=== PATIENT | female | born 1980 | race Caucasian/White ===

== ENCOUNTER → 2021-06-19 12:47 | Outpatient (CLI) | payer OTHER, SELFPAY ==
--- NOTE | ~2021-06-19 | US_ITS ---
EXAMINATION: US pelvic complete w TV DATE: 06/19/2021 13:11 INDICATION: Menorrhagia Comparison:No prior studies for comparison. TECHNIQUE: Multiple transabdominal and endovaginal sonographic images of the pelvis performed. FINDINGS: The uterus measures 9 x 4.1 x 5.8 cm. The endometrial complex measures 11 mm. The right ovary measures 2.5 x 1.7 x 3.6 cm and the left ovary measures 3.1 x 2.5 x 3.9 cm. There ar e small follicles in each ovary. Normal doppler signal in both ovaries. There is a 1.9 cm left ovaria n cyst. There is no free fluid in the pelvis. There are no abnormal masses seen on either side. IMPRESSION: 1. Left ovarian cyst measuring 1.9 cm Reviewed, dictated and finalized at location A.
== END ==
PROVIDERS: PCP Nurse Practitioner Family; Visit Provider Nurse Practitioner Family
DX: N83.202 Unspecified ovarian cyst, left side (principal)
CPT/HCPCS: 76830; 76856

== ENCOUNTER 2021-08-09 00:19 | Day surgery (SDC) | payer OTHER, SELFPAY ==
[2021-07-07 15:02] VITALS: BMI 25.0
--- NOTE | 2021-07-07 15:21 | PC.NURSE ---
Report to the Outpatient Waiting Room, entrance under the green pavilion located off [facility], at time 11:30 on date 07/19/21. OR Time: 1:30. - You and your visitor will be asked a series of questions to screen for COVID 19 for your protection. - A mask is required within the hospital. - Only one visitor is allowed at this time. Patient visitors will be guided where to wait when not with patient. Preoperative COVID Testing Requirements: No COVID Test needed if: (proof is required; if not received patient will have Rapid Test prior to entry) - Patient has received COVID Vaccine at least 14 days prior to procedure date or - Patient has positive COVID test result within last 90 days of surgery date. COVID Test needed if above criteria is not met If not COVID vaccinated a COVID test must be conducted within 72 hours of surgery and patient is asked to isolate self from time of testing until procedure. You will go to the [facility] for your COVID testing. The [facility] is located at the corner of [address] [facility]. You will only be called if COVID results are positive and your surgeon may reschedule your elective surgery date. Patients may have clear liquids (water, carbonated beverages, clear teas, apple juice) until 3 hours prior to surgery with a maximum of 20 ounces. - No food from midnight until time of surgery - Infants may have breast milk until 4 hours before surgery, infant formula 6 hours prior to surgery. - Children will be allowed to drink immediately following surgery. If applicable, please bring a bottle or sippy cup to assist with drinking. Juice, water, soda, and popsicles are readily available. For infants on formula, please bring formula the day of surgery. Pacifiers are allowed. Take the following medications with a SIP of water the morning of surgery: DOXYCYCLINE Medications to discontinue per physician: VITAMINS Date to take last dose: 07/14/21 Please no make-up, nail yoruba, hairspray, perfume, deodorant, or body powder the day of surgery. No jewelry (including any body piercings) or valuables the day of surgery, leave them at home. Please take a shower or bath the night before, or the morning of, surgery with an antibacterial soap. Wear comfortable, loose fitting clothing. Children are encouraged to wear pajamas. - Jewelry must be removed prior to entering the operating room. Rings and piercings that are not removed may be cut off. - The hospital will not accept responsibility for valuables. - Please leave all valuables, including medications, at home the day of surgery. If you are going home after surgery, a licensed driver/guide must drive you home. - NO public transportation without another adult. - We recommend that an adult stay with you for 24 hours following discharge. - We also recommend that you do not drive, make important decision, drink alcoholic beverages, or take any drugs that were not prescribed by your health care provider for at least 24 hours after your discharge time. For Pediatric surgeries, we recommend two adults accompany the child home (only one inside the building at this time). Follow any additional instructions given to you from your surgeon. Telephone instructions given to ZACKERY PUGA and asked if any additional questions and then verbalized understanding. Patient advised to call surgeon office or pre surgery nurse liaison [phone] if any additional questions.
--- NOTE | 2021-08-07 10:45 | PC.NURSE ---
Pt states no changes in medications or health history, other than noted Covid +, since previous interview. New pre-op instructions, including arrival time at 1000 for surgery at 1200, reviewed with pt. Pt denies any further questions at this time.
[2021-08-09] VITALS (10 sets, daily range): BP systolic 128–168; BP diastolic 78–110; PULSE 65–99; RESP 13–21; TEMP 36.6–36.9; O2SAT 100
[2021-08-09] MEDS: ACETAMINOPHEN 500 MG TABLET 1000 MG PO (10:14)
--- NOTE | 2021-08-09 10:46 | WPDANESEPPF ---
Anes - Initial Pre Proc Eval Procedure: Operation Date: 08/09/21 12:00 Proposed Procedures p Laparoscopic Bilateral Tubal Ligation with Fallopian Rings - Elroy Ashley MD s Possible Left Ovarian Cystectomy, Hysteroscopy Dilatation and Curettage with Endometrial Ablation,Paula - Elroy Ashley MD Date/Time: 08/09/21 10:46 Surgeon: Elroy Ashley MD Pre Op Diagnosis: Irg Bleeding,Desires Steril,Lt Ovarian Cyst Patient Data Age: 41 Gender: F Height: 1.7 m Weight: 70.2 kg Last Vital Signs Temp 36.9 C 08/09/21 10:43 Pulse 90 08/09/21 10:43 Resp 16 08/09/21 10:43 BP 151/93 H 08/09/21 10:43 Pulse Ox 100 08/09/21 10:43 Allergies Allergy/AdvReac Type Severity Reaction Status Date / Time No Known Allergies Allergy Unknown Unverified 08/09/21 10:11 Home Medications Medication Instructions Recorded Confirmed Type doxycycline hyclate 100 mg PO BID 07/07/21 08/09/21 History multivitamin 1 tablet PO DAILY 07/07/21 08/09/21 History Patient hx anesthesia problems: none Family hx anesthesia problems: none Results Review: All pre-operative results and documents have been reviewed as part of the pre-operative evaluation. [facility] Past Medical History Medical History (Updated 08/09/21 @ 10:47 by Say Li MD) Acne IBS (irritable bowel syndrome) Surgical History Surgical History (Updated 08/09/21 @ 10:47 by Say Li MD) History of bladder surgery Social History Social History Years smoked: 7 Smoking status: Former smoker Tobacco type: cigarettes Smoking end date: 08/19/07 Alcohol intake: current Drinks per week: 4 Substance use: never Substance use type: does not use Living arrangements: with family Spiritual care concerns: No Anes - Eval Final PreProcedure Day of Procedure 08/09/21 10:46 Patient weight: normal Heart: regular rate and rhythm Lungs: clear to auscultation Airway: Mallampati scale class II Neurological: alert and oriented Last oral intake: >/= 8 hours ASA classification: II Emergent: no Anesthetic plan: proceed Anesthesia type and monitoring: general ETT and standard monitoring Results Review: All pre-operative results and documents have been reviewed as part of the pre-operative evaluation. Informed Consent: The patient's anesthetic plan and its attendant risks and benefits were discussed with the patient/family/POA. Questions were solicited and answers provided to the satisfaction of the patient/family/POA.
[2021-08-09] MEDS: LACTATED RINGERS 1,000 ML 30 ML IV CONT ×2 (11:29→13:31)
[2021-08-09] MEDS: KETOROLAC 15 MG/ML VIAL (*BKC) IV PUSH ×2 (11:30→14:16)
--- NOTE | 2021-08-09 12:16 | PM.IMHP ---
H&P: HPI History of Present Illness Date/Time: 08/09/21 12:16 41 y/o with heavy, prolonged menses, a left ovarian cyst 1.9 cm, and desired sterility. Chief Complaint: Heavy periods Review of Systems Review of Systems: All systems reviewed & are unremarkable except as noted in HPI and below PMFSH Past Medical History Medical History Acne IBS (irritable bowel syndrome) Surgical History Surgical History History of bladder surgery Social History Social History Years smoked: 7 Smoking status: Former smoker Tobacco type: cigarettes Smoking end date: 08/19/07 Alcohol intake: current Drinks per week: 4 Substance use: never Substance use type: does not use Living arrangements: with family Spiritual care concerns: No Meds Home Medications and Allergies Home Medications Medication Instructions Recorded Confirmed Type doxycycline hyclate 100 mg PO BID 07/07/21 08/09/21 History multivitamin 1 tablet PO DAILY 07/07/21 08/09/21 History Allergies Allergy/AdvReac Type Severity Reaction Status Date / Time No Known Allergies Allergy Unknown Unverified 08/09/21 10:11 Vital Signs Vital Signs - 24 hr 08/09/21 10:43 Temperature 36.9 C Pulse Rate 90 Respiratory Rate 16 Blood Pressure 151/93 H Pulse Oximetry 100 Exam Const: Orientation/consciousness: patient oriented x3 Other: Well-developed, well-nourished female in no acute distress. Neck: Thyroid: thyroid normal Lymphatic: no lymphadenopathy noted (in neck, axilla or inguinal nodes) Resp: Effort & Inspection: normal respiratory effort Auscultation: clear to auscultation bilaterally Cardio: Rate: regular rate Rhythm: regular rhythm Heart sounds: S1 normal heart sound present and S2 normal heart sound present GI: Other: ABD: Soft, nontender, nondistended. No guarding or rebound tenderness. No hepatosplenomegaly. : General: Yes no CVA tenderness Other: External genitalia: normal female hair distribution, without lesion. Urethral meatus: no lesion, non prolapsed. Bladder: no mass, nontender Vagina: well-estrogenized, without lesion or discharge. No cystocele or rectocele. Cervix: no lesion or discharge. Uterus: small, anteverted, freely mobile, nontender Adnexa: no mass or tenderness. Anus/perineum: no lesions, nontender Back/Spine/Pelvis: Back: no CVA tenderness Skin: General skin exam: normal color and no rashes or lesions noted Neuro: General: patient oriented x3 Extrem: Other: Extremities: nontender with no edema Psych: Mental Status: mental status grossly normal Affect: normal affect Assessment and Plan Assessment and plan (1) Menometrorrhagia: Code(s): N92.1 - Excessive and frequent menstruation with irregular cycle Status: Acute Assessment and Plan: A: Menometrorrhagia, desired sterility, small ovarian cyst on left P: I offered medical as well as surgical management options. She prefers the latter. Specifically, she desires a laparoscopic bilateral tubal ligation, incision and drainage of left ovarian cyst, hysteroscopy, dilation and sharp curettage, and endometrial ablation. She understands there are temporary methods of contraception available to her. She understands that there are nonsurgical options as well as surgical options. She understands that tubal ligation will render her permanently sterile. She understands that there is a failure rate associated with tubal ligation, as well as an inherent ectopic gestation risk. Furthermore, she understands risks of surgery to include risks of anesthesia, risks of pain, infection, bleeding, blood products, thromboembolic phenomena and damage to adjacent structures such as bowel, bladder, ureters, blood vessels and nerves. She understands all these risks and elects to pro
--- NOTE | 2021-08-09 12:18 | WPDHPUPDATE1 ---
History and Physical Update Update Date/Time: 08/09/21 12:18 History and Physical has been reviewed, including an updated exam of the patient. There are NO changes in the patient's condition. Risks, benefits, and alternatives have been discussed and questions answered. Patient agrees to proceed with procedure.
[2021-08-09] MEDS: LIDOCAINE HCL 1% PF 30 ML VIAL INFILTRATE (13:05)
--- NOTE | 2021-08-09 13:11 | P.OP_ITS ---
Procedure Note - Detailed Date of Procedure 08/09/21 Pre-op Diagnosis Menometrorrhagia Left ovarian cyst Desired sterility Post-op Diagnosis other (Menometrorrhagia, desired sterility ) Procedure Performed Laparoscopic bilateral tubal ligation with Falope rings Hysteroscopy Dilation and sharp curettage Endometrial ablation Surgeon Elroy Ashley MD Anesthesia general and local (1% lidocaine) Findings Normal-appearing right upper quadrant, vermiform appendix, uterus, bilateral tubes, round and uterosacral ligaments, anterior and posterior cul de sac. Both ovaries demonstrated follicular changes, but no dominant cysts. The uterus sounded to a depth of 7.5 cm with a cervical length of 3 cm. Unremarkable endometrial cavity. Both tubal ostia seen. Description of Procedure The patient was taken to the operating room where general endotracheal anesthes ia was administered. She was prepared and draped in the usual sterile fashion in dorsal lithotomy position. The bladder was drained with a red rubber catheter. A sterile speculum was placed into the vagina. The anterior lip of the cervix was grasped with a single-tooth tenaculum. The acorn uterine manipulator was placed. The speculum was withdrawn. Gloves were changed and attention was turned the abdomen. An infraumbilical skin incision was made with a scalpel. The abdomen was tented and a 5mm bladeless trocar was advanced under direct laparoscopic visualization. Pneumoperitoneum was administered using carbon dioxide gas. A survey of the pelvis and abdomen revealed the findings noted above. A second skin incision was made in the midline above the symphysis pubis and an 8mm bladeless trocar was advanced under direct laparoscopic visualization. The fallopian tube on the right side was followed out to the fimbriated end for identification. It was then grasped in the midportion with the Falope ring applicator. The Falope ring was tented applied. A good loop of tube was noted to be distal to the ring. Hemostasis was excellent. The device was reloaded and the contralateral tube was similarly identified and ligated. An excellent application was noted here as well. A total of 5mL of 1% lidocaine was infiltrated into the serosa of the proximal tubes for postoperative anesthesia. The ports were withdrawn. The gas was allowed to escape. The skin incisions were reapproximated using interrupted subcuticular sutures of 4 0 Vicryl. Dermaflex was applied externally. Attention was then returned to the vagina, where the acorn manipulator was withdrawn. Ten mL of 1% lidocaine was administered in a paracervical block. The cervix was then gently dilated using Hegar dilators until an 8 mm dilator could be passed. Hysteroscopy was performed using sterile saline as a distention medium. Findings are as noted above. Sharp curettage was then performed, and endometrial curettings were collected on a Telfa pad and passed off to be sent to pathology. Finally, the the Paula device was advanced and endometrial ablation commenced without difficulty. The device was withdrawn and a second look was taken using the hysteroscope. Excellent coverage of the endometrial cavity was noted. The tenaculum was removed. Hemostasis was excellent. Sponge, lap, needle and instrument counts were correct. The patient was awakened and taken to the recovery room in stable condition. I was present and scrubbed through the entire procedure. Implants Falope rings x 2 Estimated Blood Loss 10 Drains No Packing No Pathology yes (endometrial curettings) Complications None Condition stable Disposition PACU
[2021-08-09] MEDS: fentaNYL CITRATE INJ (*CRX) 100 MCG/2 ML VIAL 25 MCG IV PUSH ×8 (13:29→14:10)
[2021-08-09] MEDS: oxyCODONE HCL (*CRX) 5 MG TAB IR PO (14:51)
[2021-08-09] MEDS: ONDANSETRON INJ 4 MG/2 ML VIAL IV PUSH (15:03)
[2021-08-09] MEDS: HYDROmorphone HCL INJ (*CRX) 1 MG/ML SYR 0.5 MG IV PUSH ×2 (15:35→15:58)
== END 2021-08-09 16:00 | disposition home or self-care (01) ==
PROVIDERS: PCP Nurse Practitioner Family; Visit Provider Obstetrics & Gynecology
PROC: (CPT 58671; principal; 2021-08-09 12:00)
PROC: 0UDB8ZZ Extraction of Endometrium, Via Natural or Artificial Opening Endoscopic (ICD-10-PCS; CPT 58558; 2021-08-09 12:00)
DX: N92.1 Excessive and frequent menstruation with irregular cycle (principal); Z30.2 Encounter for sterilization; K58.9 Irritable bowel syndrome, unspecified; Z87.891 Personal history of nicotine dependence
CPT/HCPCS: 58671; 58563; 88305; A4264; A9270; J1100; J1170; J1885; J2250; J2405; J2704; J2710; J3010; J7030; J7120

== ENCOUNTER 2025-03-01 18:18 | Emergency (ER) | payer OTHER, SELFPAY ==
--- NOTE | 2025-03-01 18:20 | ED_ITS ---
HPI - URI/Sore Throat General Chief Complaint: Upper Respiratory Infection Stated Complaint: sore throat Source: patient and RN notes reviewed Mode of arrival: ambulatory Limitations: no limitations History of Present Illness HPI Narrative: Patient is a 45-year-old female presents to the [facility] complaints cough, congestion, postnasal drip, and ear pain for the past week and half. Patient endorses a frequent nonproductive cough that is occasionally productive with green or clear sputum. She denies chest pain or shortness of breath. States that she has also had nasal congestion, scratchy throat, postnasal drip for the same amount of time. She developed left ear pain a few days ago, but states that the right ear is also now bothering her. Denies ear drainage. Denies fevers. Unsure of any known sick contacts but she has been traveling for [place] for the last 4 weekends. Related Data Home Medications ?Medication ?Instructions ?Recorded ?Confirmed ?Last Taken ?Type multivitamin 1 tablet PO DAILY 07/07/21 12/07/24 08/08/21 History carvedilol 12.5 mg tablet 12.5 mg PO Q12H 01/19/25 01/19/25 Unknown History losartan 100 mg tablet 100 mg PO DAILY 01/19/25 01/19/25 Unknown History chlorthalidone 25 mg tablet mg 03/01/25 Unknown History cholecalciferol (vitamin D3) 125 5,000 unit PO QDAY 03/01/25 03/01/25 Unknown History mcg (5,000 unit) capsule Allergies Allergy/AdvReac Type Severity Reaction Status Date / Time No Known Allergies Allergy Unknown Verified 03/01/25 18:29 Review of Systems Review of Systems: CONSTITUTIONAL: Denies fever, chills, or sweats. EYES: Denies visual changes, redness, or discharge. ENT: Reports otalgia and sore throat. Reports congestion. CARDIOVASCULAR: Denies chest pain, palpitations, or edema. RESPIRATORY: Reports cough but denies dyspnea. GASTROINTESTINAL: Denies abdominal pain, nausea, vomiting, or diarrhea. GENITOURINARY: Denies dysuria or hematuria. SKIN: Denies rash or itching. MUSCULOSKELETAL: Denies back pain, joint pain, or myalgia. NEUROLOGIC: Denies headache, numbness, or weakness. Pertinent positives per HPI. [facility] Past Medical History Medical History PCOS (polycystic ovarian syndrome) IBS (irritable bowel syndrome) Surgical History Surgical History H/O tubal ligation History of bladder surgery Family History Family History Father Alcoholism Hypertension Heart disease Mother Alcoholism Cancer Hypertension Heart disease Grandparent Alcoholism Hypertension Heart disease Cerebrovascular accident Social History Social History Years smoked: 7 Smoking status: Former smoker Tobacco type: cigarettes Smoking end date: 08/19/07 Alcohol intake: current Drinks per week: 4 Substance use: never Substance use type: does not use Do You Feel Safe in your Home?: Yes Living arrangements: with family Occupation/Education: occupation Gender identity (if verbalized by the patient): Female Sexual Orientation (if Verbalized by the Patient): Straight or Heterosexual Spiritual care concerns: No Agree to blood products: Yes Comments At the time of my signature, I reviewed and agree with the nursing past medical, surgical, social, and family history. There is no relevant family history pertinent to the patient complaint. Exam Narrative: GENERAL: This is a well-nourished, well-developed patient, in no apparent distress. HEAD: normocephalic, atraumatic. EYES: Sclera clear/white. Vision is grossly intact. EARS: External ears normal, auditory canals clear and without drainage. Right TM normal without perforation. Left TM erythematous and bulging. Hearing grossly intact. NOSE: External nose normal. + congestion. THROAT: Mucous membranes moist, Oropharyngeal erythema. NECK: Neck supple, non-tender without lymphadenopathy, masses or thyromegaly. CARDIOVASCULAR: Regular rate and rhythm without murmurs, gallops, or rubs. RESPIRATORY: Clear to auscultation. Breath sounds equal bilaterally. No wheezes, rales, or rhonchi. GASTROINTESTINAL: Abdomen soft, non-tender, nondistended. Bowel sounds are active. No hepato-splenomegaly, or palpable masses. No guarding. SKIN: warm, intact with no suspicious lesions or rash, good texture and turgor. NEURO: awake, alert, and oriented to person, place and time. There were no obvious focal neurologic abnormalities. Course Course Level of Care: Express Care Visit Vital Signs Vital signs: Vital Signs Temperature 98 F 03/01/25 18:29 Pulse Rate 76 03/01/25 18:29 Respiratory Rate 18 03/01/25 18:29 Blood Pressure 121/70 03/01/25 18:29 Pulse Oximetry 100 03/01/25 18:29 Oxygen Delivery Room Air 03/01/25 18:29 Temperature 98 F 03/01/25 18:29 Pulse Rate 76 03/01/25 18:29 Respiratory Rate 18 03/01/25 18:29 Blood Pressure 121/70 03/01/25 18:29 Pulse Oximetry 100 03/01/25 18:29 Oxygen Delivery Room Air 03/01/25 18:29 Reviewed MDM - URI/Sore Throat MDM Narrative Medical decision making narrative: Take antibiotics as directed. May given ibuprofen and/or Tylenol as needed for pain and/or fever. Follow up with primary care provider in 7-10 days to have ear rechecked. Go to the ER for any new or worsening symptoms. Avoid smoking/second-hand smoke. Continue to take Tylenol or Motrin for pain. Increase your Vitamin C intake. Use a humidifier or vaporizer at night. Take Medications as prescribed. Drink plenty of water. 8-10 glasses per day. Use flonase 2 times per day for 5 days then as needed Take mucinex 2 times per day and be sure to take with 8oz of water. Follow up with Primary provider if not getting better. Differential Diagnosis Differential diagnosis: Likely upper respiratory infection, otitis media, sinusitis, viral infection, pharyngitis and other ( Strep) Lab Data Attestation: I reviewed the patient's lab results. Labs: Lab Results 03/01/25 Range/Units 18:47 POC Grp A Strep Screen Negative (Negative) Critical Care Time Critical Care Time Critical Care Time: No Discharge Plan Discharge Clinical Impression: Acute left otitis media, Acute bacterial sinusitis Patient Disposition: Home Condition: Stable Instructions: Antibiotic Form, Sinusitis (ED), Ear Infection (ED) Additional Instructions: Take antibiotics as directed. May given ibuprofen and/or Tylenol as needed for pain and/or fever. Follow up with primary care provider in 7-10 days to have ear rechecked. Go to the ER for any new or worsening symptoms. Avoid smoking/second-hand smoke. Continue to take Tylenol or Motrin for pain. Increase your Vitamin C intake. Use a humidifier or vaporizer at night. Take Medications as prescribed. Drink plenty of water. 8-10 glasses per day. Use flonase 2 times per day for 5 days then as needed Take mucinex 2 times per day and be sure to take with 8oz of water. Follow up with Primary provider if not getting better. Patient Language: Yoruba Prescriptions: New amoxicillin-pot clavulanate 875-125 mg tablet 1 tablet PO Q12H 10 Days Qty: 20 0RF fluticasone propionate [Flonase Allergy Relief] 50 mcg/actuation spray,suspension 1 spray intranasal BID Qty: 16 0RF Rx Instructions: administer into each nostril No Action chlorthalidone 25 mg tablet cholecalciferol (vitamin D3) 125 mcg (5,000 unit) capsule 5,000 unit PO QDAY carvedilol 12.5 mg tablet 12.5 mg PO Q12H Rx Instructions: must administer with a meal/food losartan 100 mg tablet 100 mg PO DAILY multivitamin Tablet 1 tablet PO DAILY Follow-up/Referrals: Stefanie Pace APRN [Primary Care Provider] - Time of Disposition: 18:45
--- OUTSIDE RECORDS SUMMARY | 2025-03-01 18:20 | XMS_ITS | Clinical Summary ---
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
--- OUTSIDE RECORDS SUMMARY | 2025-03-01 18:20 | XMS_ITS | Encounter Summary ---
Author Organization [facility] Address [address] [place] [address] Care Team Providers Care Lumber Buyer Name Role Phone Stefanie Pace STATIONS SUPERINTENDENT Primary Care Provider + Shade Calix MD Unavailable [phone] Shante Lazo RN Unavailable Unavailable Rmoa Arizmendi RN Unavailable Unavailab le Encounter Details Date Type Department Care Team (Late st Contact Info) Description 02/16/2025 Telephone [facility] [address] [facility] [phone] [place] [address] Vi Parra Social History Tobacco Use Types Packs/Day Years Used Date Smoking Tobacco: Former Cigarettes 0.5 5 Smokeless Tobacco: Never Comments No Sex and Gender Information Value Date Recorded Sex Assigned at Not on file 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 documented in this encounter Plan of Treatment Not on file documented as of this encounter Visit Diagnoses Not on filedocumented in this encounter Care Teams Lumber Buyer Relationship Specialty Start Date End Date Stefanie Pace NP PCP - General Nurse Practitioner 06/28/21 Shade Calix MD [id number] [address] Referring Physician Cardiology 12/10/24 Shante Lazo, deckhand crab boat Failure Coordinator Cardiology 12/10/24 Roma Arizmendi, deckhand crab boat Failure Coordinator Cardiology 12/10/24 documented as of this encounter
--- OUTSIDE RECORDS SUMMARY | 2025-03-01 18:20 | XMS_ITS | Clinical Summary ---
Author Organization [facility] Address [address] [place] [address] Care Team Providers Care Seam Stayer Name Role Phone Unavailable Primary Care Provider Unavailabl e Social History Tobacco Use Types Packs/Day Years Used Date Smoking Tobacco: Never Assessed Comments Unknown Sex and Gender Information Value Date Recorded Sex Assigned at Not on file Legal Sex Female 9:06 PM CDT Gender Identity Not on file Sexual Orientation Not on file Plan of Treatment Health Maintenance Due Date Last Done Comments Cervical Cancer Screening Pa p Smear (Age 30 to 64) Every 3 Years 1982 Annual Physical 1985 Hepatitis C 01/17/2000 DTaP, Tdap and Td Vaccines ( 1 - Tdap) 2001 Hepatitis B Vaccines (1 of 3 - 19+ 3-dose series) 2001 Cervical Cancer Screening Pa p with HPV Testing (Age 30 to 64) Every 5 Years 01/17/2012 Cervical Cancer Screening with HPV 01/17/2012 Mammogram Screening 2022 COVID-19 Vaccine ( - 2023-2 5 season) 2024 HPV Vaccines Aged Out No longer eligi ble based on patient's age to complete this topic Meningococcal B Vaccine Aged Out No l onger eligible based on patient's age to complete this topic Meningococcal Vaccine Aged Out No kevin alisia eligible based on patient's age to complete this topic Pneumococcal Vaccine: Pediat rics (0 to 5 Years) and At-Risk Patients (6 to 49 Years) Aged Out No longer eligible b ased on patient's age to complete this topic RSV Immunizations Under 20 Months Aged Out No longer eligible based on patient's age to complete this topic
--- OUTSIDE RECORDS SUMMARY | 2025-03-01 18:21 | XMS_ITS | Clinical Summary ---
Author Organization [facility] Address [address] [address] Care Team Providers Care Senior Android Developer Name Role Phone [place], Stefanie Moya APRN-TAPE LIBRARIAN Primary Care Provider Source Comments [facility],non-owned Affiliates and Associated Physician Practices is amultiple site organization consisting of ambulatory clinics and hospital sitesin [place], [place], [place] and [place]. This disclosure is being madepursuant to the Care Everywhere program and may not contain all information available regarding this patient. Last updated 18.[employer] [facility] Allergies No known active allergies Medications * Be aware that medications may not be up to date on this document. Alwaysverify current medications with the patient. Vit-Fe Fumarate-FA ( VITAMIN) 28-0.8 MG tablet Take 1 Tab by mouth daily. Active metoclopramide (REGLAN) 10 MG tablet Take 1 Tab by mouth every 8 hours. 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 Gender Identity Not on file Sexual Orientation Not on file Last Filed Vital Signs Vital Sign Reading Time Taken Comments Blood Pressure 115/69 12/18/2010 5:57 PM CDT Pulse 84 12/18/2010 5:57 PM CDT Temperature 36.7 C (98 F) 12/18/2010 6:18 PM CDT Respiratory Rate 18 12/18/2010 5:57 PM CDT Oxygen Saturation 100% 12/18/2010 12:29 PM CDT Inhaled Oxygen Concentration - - Weight 62.6 kg (138 lb) 12/18/2010 11:44 AM CDT Height 168.9 cm (5' 6.5) 12/18/2010 11:44 AM CD T Body Mass Index 21.94 12/18/2010 11:44 AM CDT Plan of Treatment Health Maintenance Due Date Last Done Comments LIPID TESTING 1982 MAMMOGRAM 1982 HIV SCREENING 1997 HEPATITIS C SCREENING 01/12/2000 DTAP/TDAP/TD VACCINES (1 - Tdap) 2001 HEPATITIS B VACCINE (1 of 3 - 19+ 3-dose series) 2001 HPV VACCINE (1 - 3-dose SCDM series) 2009 COVID-19 VACCINE (1 - 2023-2 5 season) 2024 DEPRESSION SCREENING 08/19/2024 INFLUENZA VACCINE (#1) 2025 ZOSTER VACCINE (1 of 2) 01/17/2032 HIB VACCINE Aged Out No longer eligi ble based on patient's age to complete this topic MENINGOCOCCAL (Group B) VACC INE SHARED DECISION-MAKING Aged Out No longer eligibl e based on patient's age to complete this topic MENINGOCOCCAL GROUPS A/C/Y/W VACCINE Aged Out No longer eligible b ased on patient's age to complete this topic PNEUMOCOCCAL VACCINE Aged Out No long er eligible based on patient's age to complete this topic Insurance [facility] Care Teams Senior Android Developer Relationship Specialty Start Date End Date Stefanie Pace BEDSPREAD CUTTER HAND-TAPE LIBRARIAN [address] [place] [id number] PCP - General 08/22/21
--- OUTSIDE RECORDS SUMMARY | 2025-03-01 18:21 | XMS_ITS | Clinical Summary ---
Author Organization [facility] al Address [address] [place] [address] Care Team Providers Care Apple Turner Name Role Phone Stefanie Pace Vivi CUNNINGHAM Primary Care Provider + Maame Shah MD Unavailable [phone] Shante Lazo RN Unavailable Unavailable Roma Arizmendi RN Unavailable Unavailab le Allergies No known active allergies Medications carvediloL (COREG) 12.5 mg tablet Take 1 tablet (12.5 mg total) by mouth 2 (two) times a day with meals 60 tablet 11 12/10/2024 6 Active losartan (COZAAR) 100 mg tablet Take 1 tablet (100 mg total) by mouth daily 90 tablet 3 12/31/2024 Active chlorthalidone (HYGROTON) 25 mg tablet Take 0.5 tablets (12.5 mg total) by mouth daily 45 tablet 3 02/16/2025 6 Active Active Problems Problem Noted Date Diagnosed Date Primary hypertension 12/10/2024 Upper respiratory infection 06/28/2021 Posterior rhinorrhea 06/28/2021 Pain in throat 06/28/2021 Fatigue 06/28/2021 Changing skin lesion 06/28/2021 Menorrhagia 06/09/2021 Elevated white blood cell count, unspecified Encntr for general adult medical exam w/o abnorm al findings 08/05/2019 Routine general medical exam ination at a health care facility 08/05/2019 Female stress incontinence 08/05/2019 Mastodynia 08/05/2019 Postcoital bleeding 08/05/2019 Right lower quadrant pain 08/05/2019 Unspecified ovarian cyst, unspecified side 08/05 Urinary tract infection, site not specified 07/19 Full incontinence of feces 08/05/2019 Urinary incontinence 08/05/2019 Dyspareunia 08/05/2019 Acne vulgaris 12/11/2017 Melasma 12/11/2017 Perioral dermatitis 09/04/2017 Other ovarian cyst, left side 09/02/2017 Encntr for clinical exercise physiologist exam (general) (routine) w/o abn findings 04/16/2016 Herniated lumbar intervertebral disc 04/12/2016 Lumbosacral radiculopathy 04/12/2016 Degeneration of intervertebral disc of lumbar re gion 04/12/2016 Lumbago 04/09/2016 Encounter for removal of intrauterine contracept mary kay device 02/24/2015 Unspecified dyspareunia (CODE) 01/28/2014 Fecal incontinence 01/28/2014 Myofascial pain 01/28/2014 Encounter for preventive health examination 03/2013 Other disorders of menstruat ion and other abnormal bleeding from female genital tract 03/06/2012 examination or test, negative result 0 03/06/2012 Encounter for routine gynecological examination 12/07/2011 Screening for malignant neoplasm of cervix 12/06 Routine follow-up 08/07/2011 Encounters Date Type Department Care Team Description 02/16/2025 Telephone [facility] Transplant Heart [address] [facility] [address] [facility] Mailstop [phone] [place] [address] Vi Parra 02/15/2025 3:20 PM CDT Lab [facility] Advanced [facility] [address] [place] [address] 02/15/2025 3:00 PM CDT Office Visit [facility] Cardiology [address] [facility] 8th [place] [address] [place] [address] Maame Shah MD Primary hypertension (Primary Dx) 02/15/2025 8:00 AM CDT - 02/15/2025 11:59 PM CDT Hospital Encounter [facility] [address] [place] [address] Primary hypertension Discharge Disposition: Discharge to home or self care 02/02/2025 Telephone [facility] Transplant Heart [address] [facility] [address] Mailstop [phone] [place] [address] Shante Lazo RN 02/02/2025 Orders Only [facility] Transplant Heart [address] Mailstop [phone] [place] [address] Shante Lazo RN Primary hypertension (Primary Dx) 12/22/2024 12:45 PM CDT Lab [facility] Lab [facility] [place] [address] Change in blood pressure; Primary hypertension 12/18/2024 1:21 PM CDT - 12/18/2024 11:59 PM CDT Hospital Encounter [facility] Lab [address] [place] [address] Discharge Disposition: Discharge to home or self care 12/18/2024 1:16 PM CDT - 12/18/2024 11:59 PM CDT Hospital Encounter [facility] Vascular Lab [address] [place] [phone] Change in blood pressure; Primary hypertension Discharge Disposition: Discharge to home or self care 12/11/2024 Results Follow-Up [facility] Cardiology [facility] 8th [place] [address] [place] [phone] aMame Shah MD ECG 12 lead 12/10/2024 2:40 PM CDT Office Visit [facility] Cardiology [facility] Medical Office Building [address] [place] [phone] Maame Shah MD Change in blood pressure (Primary Dx); Primary hypertension 12/07/2024 Telephone [facility] Cardiology [facility] 8th [place] [address] [place] [phone] Dawna Key from Last 3 Months Immunizations Immunization Administration Dates Next Due Influenza, Trivalent, Preservative Free, Intramu scular 04/19/2015 Influenza, Unspecified 06/11/2018 Pfizer SARS-CoV-2 Monovalent Vaccination (12+ Yrs) TOBAR-READY TO USE 10/16/2021 Surgical History Surgery Date Site/Laterality Comments FL LAPS ABD PRTM&OMENTUM DX W/WO SPEC BR/WA SPX Laparoscopy (Diagnostic) - (Added by TW Conv) FL SLING OPERATION STRESS INCONTINENCE Mid-Urethral Sling Operation - (Added by TW Conv) LUMBAR DISC SURGERY Lower Back Surgery Lumbar Disc - (Added by TW Conv) MICRODISCECTOMY TUBAL LIGATION 2020 SPINE SURGERY 2016 BLADDER SURGERY 2018 Medical History Medical History Date Comments Personal history of other di seases of the female genital tract History of dyspareunia - (Ad ded by TW Conv) Personal history of other di seases of the female genital tract Personal history of ovarian cyst - (Added by TW Conv) Stress incontinence Stress incon tinence - (Added by TW Conv) Personal history of other di seases of the digestive system History of constipation - (A dded by TW Conv) Personal history of other sp ecified conditions History of urinary frequency - (Added by TW Conv) Urgency of urination Urinary urg ency - (Added by TW Conv) Pain of left foot Left foot pain - (Added by TW Conv) Hypertension 11/2024 Family History Medical History Relation Name Comments Heart attack Maternal Grandfather Stas Heart disease Maternal Grandfather Stas Family history of cardiac disorder - (Added by TW Conv) Heart disease Maternal Grandmother Family history of cardiac disorder - (Added by TW Conv) Cancer Mother Mother Hypertension Mother Mother Family history of hypertension - (Added by TW Conv) Ovarian cancer Mother's Sister Ovarian ca ncer - (Added by TW Conv) Skin cancer Other 1 Family history of skin cancer - Relation: Aunt (Added by TW Conv) Diabetes Other 2 Family history of diabetes mellitus - Relation: Aunt (Added by TW Conv) Heart disease Paternal Grandfather Family history of cardiac disorder - (Added by TW Conv) Heart disease Paternal Grandmother Family history of cardiac disorder - (Added by TW Conv) Relation Name Status Comments Maternal Grandfather Stas Maternal Grandmother Mother Mother Mother's Sister Other 1 Other 2 Paternal Grandfather Paternal Grandmother Social History Tobacco Use Types Packs/Day Years Used Date Smoking Tobacco: Former Cigarettes 0.5 5 Smokeless Tobacco: Never Comments No Sex and Gender Information Value Date Recorded Sex Assigned at Not on file 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 Gender Identity Female 03/18/2019 7:48 AM CDT Sexual Orientation Straight 03/18/2019 7: 48 AM CDT Obstetrics History Last Filed Vital Signs Vital Sign Reading Time Taken Comments Blood Pressure 172/114 02/15/2025 3:12 PM CDT Pulse 71 02/15/2025 3:12 PM CDT Temperature 36.7 C (98.1 F) 04/01/2019 3:05 PM CDT Respiratory Rate 16 04/01/2019 10:27 PM CDT Oxygen Saturation 99% 02/15/2025 3:12 PM CDT Inhaled Oxygen Concentration - - Weight 69.9 kg (154 lb) 02/15/2025 3:12 PM CDT Height 170.2 cm (5' 7) 02/15/2025 3:12 PM CDT Body Mass Index 24.12 02/15/2025 3:12 PM CDT Plan of Treatment Health Maintenance Due Date Last Done Comments Cervical Cancer Screening 1982 Depression Screening 1982 Hepatitis C Screening 1982 Varicella Vaccines (1 of 2 - 13+ 2-dose series) 1995 Hepatitis B Screening 01/17/2000 Regular Well Visit/Exam 18-64 01/17/2000 Breast Cancer Screening-Mammogram 05/24/2023 05/24/2022, 05/01/2013 Covid-19 Vaccine ( season) 2024 10/16/2021, 10/14/2020, 09/16/2020 Influenza Vaccine (#1) 2025 8, 05/19/2016, 05/20/2015, Additional history exists DTaP/Tdap/Td Vaccine (3 - Td or Tdap) 11/13/2026 11/13/2016, 08/19/2004 HPV Vaccines Aged Out No longer eligi ble based on patient's age to complete this topic Pneumococcal vaccine <65 Aged Out No longer eligible based on patient's age to complete this topic Medical Devices Implanted Type Area Business Communications Instructor Device Identifier Shelf Expiration Date Model / Serial / Lot Bladder Sling Pelvis Procedures Procedure Name Priority Date/Time Associated Diagnosis Comments EGFR Routine 02/15/2025 8:00 AM CDT Primary hypertension CATECHOLAMINES, FRACTIONATED, URINE, 24 HOUR RESULT Routine 02/15/2025 8:00 AM CDT Primary hypertension ALDOSTERONE, URINE, 24 HOUR RESULT Routine 02/15/2025 8:00 AM CDT Primary hypertension CREATININE CLEARANCE, URINE, 24 HOUR RESULT Routine 02/15/2025 8:00 AM CDT Primary hypertension CREATININE Routine 02/15/2025 8:00 AM CDT Primary hypertension VOLUME AND PERIOD, URINE, 24 HOUR Routine 02/15/2025 8:00 AM CDT Primary hypertension METANEPHRINES, URINE, 24 HOUR RESULT Routine 02/15/2025 8:00 AM CDT Primary hypertension CREATININE CLEARANCE, URINE, 24 HOUR Routine 02/15/2025 8:00 AM CDT Primary hypertension CATECHOLAMINES, FRACTIONATED, URINE, 24 HOUR Routine 02/15/2025 8:00 AM CDT Primary hypertension ALDOSTERONE, URINE, 24 HOUR Routine 02/15/2025 8:00 AM CDT Primary hypertension METANEPHRINES, URINE, 24 HOUR Routine 02/15/2025 8:00 AM CDT Primary hypertension EGFR Routine 12/22/2024 12:58 PM CDT Change in blood pressure Primary hypertension VOLUME AND PERIOD, URINE, 24 HOUR Routine 12/22/2024 12:58 PM CDT Change in blood pressure Primary hypertension CREATININE CLEARANCE, URINE, 24 HOUR RESULT Routine 12/22/2024 12:58 PM CDT Change in blood pressure Primary hypertension CREATININE Routine 12/22/2024 12:58 PM CDT Change in blood pressure Primary hypertension CREATININE CLEARANCE, URINE, 24 HOUR Routine 12/22/2024 12:58 PM CDT Change in blood pressure Primary hypertension US RENAL DOPPLER Schedule Routine, Read Routine (OP Routine) 12/18/2024 2:19 PM CDT Change in blood pressure Primary hypertension ECG 12-LEAD Routine 12/10/2024 2:20 PM CDT Change in blood pressure CBC WITH AUTO DIFFERENTIAL Routine 12/07/2024 3:40 PM CDT COMPREHENSIVE METABOLIC PANEL Routine 12/07/2024 3:40 PM CDT LIPID PANEL Routine 12/07/2024 3:40 PM CDT VITAMIN B12 Routine 12/07/2024 3:40 PM CDT VITAMIN D 25 HYDROXY Routine 12/07/2024 3:40 PM CDT TSH Routine 12/07/2024 3:40 PM CDT HEMOGLOBIN A1C Routine 12/07/2024 3:40 PM CDT SCREENING MAMMOGRAM BILATERAL W SUNNY Schedule Routine, Read Routine (OP Routine) 05/24/2022 1:50 PM CDT Screening mammogram, encounter for from Last 3 Months or Most Recently Relevant to Health Maintenance Results * (ABNORMAL) Catecholamines, fractionated, urine, 24 hour (02/15/2025 8:00 AM CDT) Epinephrine, free 24 hour ur <0.8 <21 mcg/24H [place] [facility] Norepinephrine, free 24 hour ur 0.9(L) 15 - 80 mcg/24H [facility] Dopamine, free 24 hour ur <7.9 65 - 400 mcg/24H [facility] Comment: ADDITIONAL INFORMATION This test was developed and its performance characteristics determined by [facility] in a manner consistent with CLIA requirements. This test has not been cleared or approved by the U.S. Food and Drug Administration. Test Performed by: [facility] [address] [place] [address] Photographic Restorer: Sunni Jay Ph.D.; CLIA# [id number] Urine 02/15/2025 8:00 AM CDT 02/15/2025 9:48 PM CDT Maame Shah MD LAB URINE ORDERABLES Final Result [facility] Department [place] [address] [facility] Lab * Metanephrines, urine, 24 hour (02/15/2025 8:00 AM CDT) Pathologist [facility] Metanephrines Comment Not Reported [facility] Metanephrines, 24 hr ur 90 mcg/24H [facility] Comment: REFERENCE VALUE 30-180 (Normotensive) <400 (Hypertensive) Normetanephrine, 24 hour ur 312 mcg/24H [facility] Comment: REFERENCE VALUE 119-451 (Normotensive) <900 (Hypertensive) Metanephrine, Total, 24 Hour Urine 402 mcg/24H [facility] Comment: REFERENCE VALUE 156-561 (Normotensive) <1300 (Hypertensive) Interpretive Data Testing performed by: [place] [address]. Urine 02/15/2025 8:00 AM CDT 02/15/2025 9:48 PM CDT Maame Shah MD LAB URINE ORDERABLES Final Result Performing Organization Address City/[facility]/ZIP Co de Phone Number MI[facility] [place] [address] [facility] * eGFR (02/15/2025 8:00 AM CDT) eGFR See Comment >=60 Comment: Credited, specimen not received Interpretive Data Reference Interval Normal >/= 90 mL/min/1.73m2 Mildly decreased* 60 - 89 mL/min/1.73m2 Mildly to moderately decreased 45 - 59 mL/min/1.73m2 Moderately to severely decreased 30 - 44 mL/min/1.73m2 Severely decreased 15 - 29 mL/min/1.73m2 Kidney Failure < 15 mL/min/1.73m2 *Relative to young adult level Estimated glomerular filtration rate is determined by the 2020 CKD-EPI equation recommended by the National Kidney Foundation (A Unifying Approach to GFR Estimation: Recommendations of the NKF-ASK Task Force on Reassessing the Inclusion of Race in Diagnosing Kidney Disease, JASN 2020). The CKD-EPI equation should not be used for patients with unstable renal function and has not been validated in children and those over 70. Current interpretive data was last reviewed 2021. Urine/Blood 02/15/2025 8:00 AM CDT 02/15/2025 4:50 PM CDT Maame Shah MD LAB BLOOD ORDERABLES Final Result [facility] [address] [facility] [place] [address] * Volume and period, urine, 24 hour (02/15/2025 8:00 AM CDT) Volume, ur 1,550 mL Period, Urine Collection 1,440 min [facility] Urine 02/15/2025 8:00 AM CDT 02/15/2025 4:50 PM CDT Maame Shah MD LAB URINE ORDERABLES Final Result Performing Organization Address [facility] de Phone Number [facility] [place] [address] * Creatinine clearance, urine, 24 hour (02/15/2025 8:00 AM CDT) Creatinine Clearance See Comment 60 - 130 mL/min Comment:Credited, specimen n ot received Creatinine, 24 hr, ur 1.1 0.6 - 1.5 g/24H [facility] Urine/Blood 02/15/2025 8:00 AM CDT 02/15/2025 4:50 PM CDT Maame Shah MD LAB URINE ORDERABLES Final Result Performing Organization Address [facility] de Phone Number [facility] [place] [address] * Aldosterone, urine, 24 hour (02/15/2025 8:00 AM CDT) Aldosterone, 24 hr, ur 4.4 2.0 - 20 mcg/24H [facility] Comment: Interpretive Data Testing performed by: [facility], [place] [address]. Urine 02/15/2025 8:00 AM CDT 02/15/2025 9:48 PM CDT Maame Shah MD LAB URINE ORDERABLES Final Result Performing Organization Address [facility] de Phone Number [facility] [place] [address] [facility] * Creatinine (02/15/2025 8:00 AM CDT) Creatinine See Comment 0.60 - 1.10 mg/dL Comment:Credited, specimen n ot received Urine/Blood 02/15/2025 8:00 AM CDT 02/15/2025 4:50 PM CDT Maame Shah MD LAB BLOOD ORDERABLES Final Result Performing Organization Address City/[facility]/ZIP Co de Phone Number [facility] [place] Department [place] [address] * eGFR (12/22/2024 12:58 PM CDT) eGFR >90 >=60 mL/min/1. 73 m2 Comment: Interpretive Data Reference Interval Normal >/= 90 mL/min/1.73m2 Mildly decreased* 60 - 89 mL/min/1.73m2 Mildly to moderately decreased 45 - 59 mL/min/1.73m2 Moderately to severely decreased 30 - 44 mL/min/1.73m2 Severely decreased 15 - 29 mL/min/1.73m2 Kidney Failure < 15 mL/min/1.73m2 *Relative to young adult level Estimated glomerular filtration rate is determined by the 2020 CKD-EPI equation recommended by the National Kidney Foundation (A Unifying Approach to GFR Estimation: Recommendations of the NKF-ASK Task Force on Reassessing the Inclusion of Race in Diagnosing Kidney Disease, JASN 2020). The CKD-EPI equation should not be used for patients with unstable renal function and has not been validated in children and those over 70. Current interpretive data was last reviewed 2021. Testing performed by: [address] [address] Urine/Blood 12/22/2024 12:5 8 PM CDT 12/22/2024 1:10 PM CDT us Maame Shah MD LAB BLOOD ORDERABLES Final Result Performing Organization Address City/[facility]/ZIP Co de Phone Number MIKE [address] [facility] Department [place] [address] * Volume and period, urine, 24 hour (12/22/2024 12:58 PM CDT) Volume, ur 2,150 mL Comment:Testing performed by : [address] [address] Period, Urine Collection 1,440 min MIKE Comment:Testing performed by : [address] [address] Urine/Blood 12/22/2024 12:5 8 PM CDT 12/22/2024 1:10 PM CDT Result [facility] Maame Shah MD LAB URINE ORDERABLES Final Result Performing Organization Address [facility] de Phone Number [address] [place] [address] * (ABNORMAL) Creatinine clearance, urine, 24 hour (12/22/2024 12:58 PM CDT) Creatinine Clearance 151(H) 60 - 130 mL/min Comment:Testing performed by : [address] [address] Creatinine, 24 hr, ur 1.3 0.6 - 1.5 g/24H [facility] Comment:Testing performed by : [address] [address] Urine/Blood 12/22/2024 12:5 8 PM CDT 12/22/2024 1:10 PM CDT Result [facility] Maame Shah MD LAB URINE ORDERABLES Final Result Performing Organization Address [facility] de Phone Number [address] [place] [address] * Creatinine (12/22/2024 12:58 PM CDT) Creatinine 0.60 0.60 - 1.10 mg/dL Comment:Testing performed by : [address] [address] Urine/Blood 12/22/2024 12:5 8 PM CDT 12/22/2024 1:10 PM CDT Maame Shah MD LAB BLOOD ORDERABLES Final Result [facility] [address] [facility] Department [place] [address] * US Renal Doppler (12/18/2024 2:19 PM CDT) Anatomical Region Laterality Modality Vascular N/A Ultrasound 12/18/2024 1:46 PM CDT Narrative 12/20/2024 2:45 PM CDT Renal Artery Duplex Ultrasound Report Patient Name: RISHI PUGA M : 1980 (44y 11m) Study Date: 12/18/2024 1:46:10 PM Gender: F Marine Equipment Preservation Inspector: Roma Powers RDMS,RVT Ref Provider: MAAME SHAH Quality: Adequate Order Provider: MAAME SHAH PROCEDURES: Renal Report: Non-invasive Duplex ultrasound imaging of the renal arteries and kidney parenchyma was performed. INDICATIONS: R68.89 Other general symptoms and signs and I10 Essential (primary) hypertension. COMPARISONS: No prior exams. MEASUREMENTS: Right Value Left Value Aorta Prx Dim 77.9 cm Lt RAR 1.60 Rt RAR 2.26 Lt Prox Renal Artery PSV 79 cm/sec Rt Prox Renal Artery PSV 88 cm/sec Lt Samuel Art Prx EDV 38 cm/sec Rt Samuel Art Prx EDV 46 cm/sec Lt Samuel Art Mid PSV 125 cm/sec Rt Samuel Art Mid PSV 177 cm/sec Lt Samuel Art Mid EDV 57 cm/sec Rt Samuel Art Mid EDV 83 cm/sec Lt Samuel Art Dst PSV 69 cm/sec Rt Samuel Art Dst PSV 123 cm/sec Lt Samuel Art Dst EDV 32 cm/sec Rt Samuel Art Dst EDV 53 cm/sec Lt Kidney Length 10.4 cm Rt Kidney Length 9.8 cm FINDINGS: Right Renal Artery and Kidney: Right renal artery (more superior) Prox 100/45 mid 121/54 dist 95/42 RAR 1.6. Left Renal Artery and Kidney: Left renal artery (more superior) prox 84/41 mid 92/41 dist 102/49 RAR 1.3. 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 CONCLUSIONS: 1. Renal arteries are patent without stenosis bilaterally with normal velocities and renal artery to aortic systolic ratios. ATTESTATION: I have reviewed and interpreted the pertinent images and measurements of this study. I attest to the conclusions in the final report that is provided above. Electronically Signed By: Sree Villegas MD 12/20/2024 2:19:12 PM CDT CC: Maame Shah MD Procedure Note Sree Villegas MD - 12/20/2024 Renal Artery Duplex Ultrasound Report Patient Name: RISHI PUGA M : 1980 (44y 11m) Study Date: 12/18/2024 1:46:10 PM Gender: F Marine Equipment Preservation Inspector: Roma Powers RDMS,RVT Ref Provider: MAAME SHAH Quality: Adequate Order Provider: MAAME SHAH PROCEDURES: Renal Report: Non-invasive Duplex ultrasound imaging of the renal arteries and kidneyparenchyma was performed. INDICATIONS: R68.89 Other general symptoms and signs and I10 Essential (primary)hypertension. COMPARISONS: No prior exams. MEASUREMENTS: Right Value Left Value Aorta Prx Dim 77.9 cm Lt RAR 1.60 Rt RAR 2.26 Lt Prox Renal Artery PSV 79 cm/sec Rt Prox Renal Artery PSV 88 cm/sec Lt Samuel Art Prx EDV 38 cm/sec Rt Samuel Art Prx EDV 46 cm/sec Lt Samuel Art Mid PSV 125 cm/sec Rt Samuel Art Mid PSV 177 cm/sec Lt Samuel Art Mid EDV 57 cm/sec Rt Samuel Art Mid EDV 83 cm/sec Lt Samuel Art Dst PSV 69 cm/sec Rt Samuel Art Dst PSV 123 cm/sec Lt Samuel Art Dst EDV 32 cm/sec Rt Samuel Art Dst EDV 53 cm/sec Lt Kidney Length 10.4 cm Rt Kidney Length 9.8 cm FINDINGS: Right Renal Artery and Kidney: Right renal artery (more superior) Prox 100/45 mid 121/54 dist 95/42 RAR 1.6. Left Renal Artery and Kidney: Left renal artery (more superior) prox 84/41 mid 92/41 dist 102/49 RAR 1.3. 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 CONCLUSIONS: 1. Renal arteries are patent without stenosis bilaterally with normalvelocities and renal artery to aortic systolic ratios. ATTESTATION: I have reviewed and interpreted the pertinent images and measurements ofthis study. I attest to the conclusions in the final report that is provided above. Electronically Signed By: Sree Villegas MD 12/20/2024 2:19:12 PM CDT CC: Maame Shah MD Maame Shah MD IMG US PROCEDURES Final Res ult * ECG 12 lead (12/10/2024 2:20 PM CDT) Maame Shah MD ECG ORDERABLES Edited Resu lt - Final * (ABNORMAL) CBC with auto differential (12/07/2024 3:40 PM CDT) SCRIBED WBC 4.2 3.8 - 10.8 k/cumm EXTERNAL LAB SCRIBED Hemoglobin 15.3 11.7 - 15.5 g/dL EXTERNAL LAB SCRIBED Hematocrit 45.3(A) 35.0 - 45.0 % EXTERNAL LAB SCRIBED Platelets 359 140 - 400 k/cumm EXTERNAL LAB Blood 12/07/2024 3:40 PM CDT Result [facility] Historical Provider MD LAB BLOOD ORDERABLES Rosemary l Result EXTERNAL LAB * (ABNORMAL) Vitamin D 25 hydroxy (12/07/2024 3:40 PM CDT) SCRIBED 25-OH Vitamin D 17(A) 30 - 100 ng/mL EXTERNAL LAB Blood 12/07/2024 3:40 PM CDT Result [facility] Historical Provider MD LAB BLOOD ORDERABLES Rosemary l Result EXTERNAL LAB * TSH (12/07/2024 3:40 PM CDT) Pathologist [facility] Scribed TSH 1.22 N/A mcU/mL EXTERNAL LAB Blood 12/07/2024 3:40 PM CDT Result [facility] Historical Provider MD LAB BLOOD ORDERABLES Rosemary l Result EXTERNAL LAB * Hemoglobin A1c (12/07/2024 3:40 PM CDT) Pathologist [facility] SCRIBED Hemoglobin A1c 4.9 <5.7 % EXTERNAL LAB Blood 12/07/2024 3:40 PM CDT Historical Provider MD LAB BLOOD ORDERABLES Rosemary l Result EXTERNAL LAB * (ABNORMAL) Vitamin B12 (12/07/2024 3:40 PM CDT) SCRIBED Vitamin B12 605 200 - 1,100 EXTERNAL LAB Blood 12/07/2024 3:40 PM CDT [facility] Provider MD LAB BLOOD ORDERABLES Rosemary l Result Performing Organization Address City/[facility]/ZIP Co de Phone Number EXTERNAL LAB * Lipid panel (12/07/2024 3:40 PM CDT) SCRIBED Cholesterol, Total 205 <200 EXTERNAL LAB SCRIBED HDL 125 <130 EXTERNAL LAB SCRIBED LDL 102 <100 EXTERNAL LAB SCRIBED Triglycerides 129 <150 EXTERNAL LAB Blood 12/07/2024 3:40 PM CDT [facility] Provider MD LAB BLOOD ORDERABLES Rosemary l Result Performing Organization Address [facility] Co de Phone Number EXTERNAL LAB * Comprehensive metabolic panel (12/07/2024 3:40 PM CDT) SCRIBED Sodium 138 135 - 146 mmol/L EXTERNAL LAB SCRIBED Potassium 4.5 3.5 - 5.3 mmol/L EXTERNAL LAB SCRIBED Chloride 101 98 - 110 mmol/L EXTERNAL LAB SCRIBED Carbon Dioxide 28 20 - 32 mmol/L EXTERNAL LAB SCRIBED Urea Nitrogen (BUN) 15 7 - 25 mg/dl EXTERNAL LAB SCRIBED Creatinine 0.65 0.50 - 0.99 mg/dl EXTERNAL LAB SCRIBED Glucose 89 65 - 99 mg/dl EXTERNAL LAB SCRIBED Calcium 10.0 8.6 - 10.2 mg/dl EXTERNAL LAB SCRIBED Bilirubin 0.7 0.2 - 1.2 mg/dl EXTERNAL LAB SCRIBED Plasma Protein 7.2 6.1 - 8.1 g/dl EXTERNAL LAB SCRIBED Albumin 4.9 3.6 - 5.1 g/dl EXTERNAL LAB SCRIBED Alkaline Phosphatase 63 31 - 125 Units/L EXTERNAL LAB SCRIBED Alanine Transaminase (ALT) 23 6 - 29 Units/L EXTERNAL LAB SCRIBED Aspartate Transaminase (AST) 24 10 - 30 Units/L EXTERNAL LAB SCRIBED eGFR in 113 >=60 EXTERNAL LAB SCRIBED eGFR in NonAfrican Angolan 113 >=60 EXTERNAL LAB Blood 12/07/2024 3:40 PM CDT us Historical Provider LAB BLOOD ORDERABLES Rosemary bradshaw Result EXTERNAL LAB * Screening Mammogram Bilateral W Sunny (05/24/2022 1:50 PM CDT) Anatomical Region Laterality Modality Breast Bilateral Mammography Narrative 05/25/2022 12:43 PM CDT Mammogram Technique: Bilateral Digital Breast Tomosynthesis, Bilateral C-view 2D Screening mammogram. Views obtained: bilateral craniocaudal and bilateral mediolateral oblique. Computer Aided Detection was performed. Mammogram Findings: The present examination has been compared to a prior imaging study performed at [facility] on 05/01/2013. There are scattered areas of fibroglandular density. There is no suspicious abnormality in either breast. Impression: There is no mammographic evidence of malignancy. Annual screening mammography is recommended. OVERALL FINAL ASSESSMENT: BI-RADS CATEGORY 1: Negative. Procedure Note Vero Kerr MD - 05/25/2022 Mammogram Technique: Bilateral Digital Breast Tomosynthesis, Bilateral C-view 2D Screening mammogram. Views obtained: bilateral craniocaudal and bilateral mediolateral oblique. Computer Aided Detection was performed. Mammogram Findings: The present examination has been compared to a prior imaging study performed at [facility] on 05/01/2013. There are scattered areas of fibroglandular density. There is no suspicious abnormality in either breast. Impression: There is no mammographic evidence of malignancy. Annual screening mammography is recommended. OVERALL FINAL ASSESSMENT: BI-RADS CATEGORY 1: Negative. us Self Screening Mammogram IMG MAMMO PROCEDURES Fi nal Result from Last 3 Months or Most Recently Relevant to Health Maintenance Insurance [employer] PPO [facility] CHOICE PLUS [employer] PPO WORKERS COMPENSATION GENERIC Care Teams Apple Turner Relationship Specialty Start Date End Date Stefanie Pace NP PCP - General Nurse Practitioner 06/28/21 Maame Shah MD [address] [address] Referring Physician Cardiology 12/10/24 Shante Lazo, forensic ballistics expert Failure Coordinator Cardiology 12/10/24 Roma Arizmendi, forensic ballistics expert Failure Coordinator Cardiology 12/10/24
--- OUTSIDE RECORDS SUMMARY | 2025-03-01 18:21 | XMS_ITS | Referral Summary ---
Author Organization [facility] Address [address] [place] [address] Care Team Providers Care Truant Officer Name Role Phone Sanjeev Stefanie Vivi CUNNINGHAM Primary Care Provider + Maame Shah MD Unavailable [phone] Shante Lazo RN Unavailable Unavailable Roma Arizmenid RN Unavailable Unavailab le Encounters Date Type Department Care Team Description 02/16/2025 Telephone [facility] [address] [facility] 340 Mailstop [phone] [place] [address] Vi Parra 02/15/2025 8:00 AM CDT - 02/15/2025 11:59 PM CDT Hospital Encounter [facility] of [address] [address] Primary hypertension Discharge Disposition: Discharge to home or self care 02/15/2025 3:20 PM CDT Lab [facility] [address] [place] [phone] 02/15/2025 3:00 PM CDT Office Visit [facility] Cardiology [address] [facility] Advanced Medicine 8th [place] [address] [place] [address] Maame Shah MD Primary hypertension (Primary Dx) 02/02/2025 Telephone [facility] [address] [facility] [address] Mailstop [phone] [place] [address] Shante Lazo RN 02/02/2025 Orders Only [facility] [address] [facility] [address] Mailstop [phone] [place] [address] Shante Lazo RN Primary hypertension (Primary Dx) 12/22/2024 12:45 PM CDT Lab [facility] [address] [place] [address] Change in blood pressure; Primary hypertension 12/18/2024 1:21 PM CDT - 12/18/2024 11:59 PM CDT Hospital Encounter [facility] [address] [place] [address] Discharge Disposition: Discharge to home or self care 12/18/2024 1:16 PM CDT - 12/18/2024 11:59 PM CDT Hospital Encounter [facility] Vascular Lab [address] [place] [phone] Change in blood pressure; Primary hypertension Discharge Disposition: Discharge to home or self care 12/11/2024 Results Follow-Up [facility] Cardiology [address] [place] [address] 8th [place] [address] [place] [phone] Maame Shah MD ECG 12 lead 12/10/2024 2:40 PM CDT Office Visit [facility] Cardiology [facility] Medical Office Building [address] [place] [address] Maame Shah MD Change in blood pressure (Primary Dx); Primary hypertension 12/07/2024 Telephone [facility] Cardiology 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 04/16/2016 [...] neoplasm of cervix 12/06 Routine follow-up 08/07/2011 Immunizations Immunization Administration Dates Next Due Influenza, Trivalent, Preservative Free, Intramu scular 04/19/2015 Influenza, Unspecified 06/11/2018 Pfizer SARS-CoV-2 Monovalent Vaccination (12+ Yrs) TOBAR-READY TO USE 10/16/2021 Social History Tobacco Use Types Packs/Day Years Used Date Smoking Tobacco: Former Cigarettes 0.5 5 Smokeless Tobacco: Never Comments No Sex and Gender Information Value Date Recorded Sex Assigned at Not on file 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 Dopamine, free 24 hour ur <7.9 65 - 400 mcg/24H [facility] Comment: ADDITIONAL INFORMATION This test was developed and its performance characteristics determined by [facility] in a manner consistent with CLIA requirements. This test has not been cleared or approved by the U.S. Food and Drug Administration. Test Performed by: [facility] [place] [id number] Medical Records Supervisor: Sunni Jay Ph.D.; CLIA# [id number] Urine 02/15/2025 8:00 AM CDT 02/15/2025 9:48 PM CDT Maame Shah MD LAB URINE ORDERABLES Final Result [facility] Department [place] [address] [facility] * Metanephrines, urine, 24 hour (02/15/2025 8:00 AM CDT) Metanephrines Comment Not Reported [facility] Metanephrines, 24 hr ur 90 mcg/24H [facility] Comment: REFERENCE VALUE 30-180 (Normotensive) <400 (Hypertensive) Normetanephrine, 24 hour ur 312 mcg/24H [facility] Comment: REFERENCE VALUE 119-451 (Normotensive) <900 (Hypertensive) Metanephrine, Total, 24 Hour Urine 402 mcg/24H [facility] Comment: REFERENCE VALUE [phone] (Normotensive) <1300 (Hypertensive) Interpretive Data Testing performed by: [facility], [place] [address]. Urine 02/15/2025 8:00 AM CDT 02/15/2025 9:48 PM CDT Maame Shah MD LAB URINE ORDERABLES Final Result [facility] [place] [address] [facility] * eGFR (02/15/2025 8:00 AM CDT) [...] BLOOD ORDERABLES Final Result Performing Organization Address City/[facility] Co de Phone Number [facility] Department [place] [address] * Volume and period, urine, 24 hour (02/15/2025 8:00 AM CDT) Volume, ur 1,550 mL Period, Urine Collection 1,[address] [facility] Urine 02/15/2025 8:00 AM CDT 02/15/2025 4:50 PM CDT Maame Shah MD LAB URINE ORDERABLES Final Result [facility] [place] [address] * Creatinine clearance, urine, 24 hour (02/15/2025 8:00 AM CDT) Creatinine Clearance See Comment 60 - 130 mL/min Comment:Credited, specimen n ot received Creatinine, 24 hr, ur 1.1 0.6 - 1.5 g/24H [facility] Urine/Blood 02/15/2025 8:00 AM CDT 02/15/2025 4:50 PM CDT Maame Shah MD LAB URINE ORDERABLES Final Result Performing Organization Address [facility] Co de Phone Number [facility] [place] [address] * Aldosterone, urine, 24 hour (02/15/2025 8:00 AM CDT) Pathologist [facility] Aldosterone, 24 hr, ur 4.4 2.0 - 20 mcg/24H [facility] Comment: Interpretive Data Testing performed by: [facility], [place] [address]. Urine 02/15/2025 8:00 AM CDT 02/15/2025 9:48 PM CDT Maame Shah MD LAB URINE ORDERABLES Final Result Performing Organization Address [facility] Co de Phone Number [facility] [place] [address] [facility] * Creatinine (02/15/2025 8:00 AM CDT) [facility] Creatinine See Comment 0.60 - 1.10 mg/dL Comment:Credited, specimen n ot received Urine/Blood 02/15/2025 8:00 AM CDT 02/15/2025 4:50 PM CDT Maame Shah MD LAB BLOOD ORDERABLES Final Result Performing Organization Address City/[facility] Co de Phone Number [facility] [place] [address] * eGFR (12/22/2024 12:58 PM CDT) [facility] eGFR >90 >=60 mL/min/1. 73 m2 Comment: [...] was last reviewed 2021. Testing performed by: [address] [address] Urine/Blood 12/22/2024 12:5 8 PM CDT 12/22/2024 1:10 PM CDT Maame Shah MD LAB BLOOD ORDERABLES Final Result Performing Organization Address City/[facility] Co de Phone Number [facility] [address] [facility] [place] [address] * Volume and period, urine, 24 hour (12/22/2024 12:58 PM CDT) Volume, ur 2,150 mL Comment:Testing performed by : [address] [address] Period, Urine Collection 1,440 min [facility] Comment:Testing performed by : [address] [address] Urine/Blood 12/22/2024 12:5 8 PM CDT 12/22/2024 1:10 PM CDT Maame Shah MD LAB URINE ORDERABLES Final Result Performing Organization Address City/[facility] Co de Phone Number [facility] [address] [facility] [place] [address] * (ABNORMAL) Creatinine clearance, urine, 24 hour (12/22/2024 12:58 PM CDT) Creatinine Clearance 151(H) 60 - 130 mL/min Comment:Testing performed by : [address] [address] Creatinine, 24 hr, ur 1.3 0.6 - 1.5 g/24H [facility] Comment:Testing performed by : [address] [address] Urine/Blood 12/22/2024 12:5 8 PM CDT 12/22/2024 1:10 PM CDT Maame Shah MD LAB URINE ORDERABLES Final Result Performing Organization Address [facility] Co de Phone Number [address] [place] [address] * Creatinine (12/22/2024 12:58 PM CDT) Creatinine 0.60 0.60 - 1.10 mg/dL Comment:Testing performed by : [address] [address] Urine/Blood 12/22/2024 12:5 8 PM CDT 12/22/2024 1:10 PM CDT Maame Shah MD LAB BLOOD ORDERABLES Final Result [address] [place] [address] * US Renal Doppler (12/18/2024 2:19 PM CDT) Anatomical Region Laterality Modality Vascular N/A Ultrasound 12/18/2024 1:46 PM CDT Narrative 12/20/2024 2:45 PM CDT Renal Artery Duplex Ultrasound Report Patient Name: EDD RISHI, M : 1980 (44y 11m) Study Date: 12/18/2024 1:46:10 PM Gender: F Sack Department Supervisor: Roma Powers RDMS,RVT Ref Provider: MAAME SHAH [...] Study Date: 12/18/2024 1:46:10 PM Gender: F Sack Department Supervisor: Roma Powers RDMS,RVT Ref Provider: MAAME SHAH [...] Blood 12/07/2024 3:40 PM CDT Historical Provider LAB BLOOD ORDERABLES Rosemary bradshaw Result EXTERNAL LAB * (ABNORMAL) Vitamin D 25 hydroxy (12/07/2024 3:40 PM CDT) SCRIBED 25-OH Vitamin D 17(A) 30 - 100 ng/mL EXTERNAL LAB Blood 12/07/2024 3:40 PM CDT Result [facility] Provider MD LAB BLOOD ORDERABLES Rosemary l Result EXTERNAL LAB * TSH (12/07/2024 3:40 PM CDT) Scribed TSH 1.22 N/A mcU/mL EXTERNAL LAB Blood 12/07/2024 3:40 PM CDT Result [facility] Provider MD LAB BLOOD ORDERABLES Rosemary l Result Performing Organization Address City/[facility]/ZIP Co de Phone Number EXTERNAL LAB * Hemoglobin A1c (12/07/2024 3:40 PM CDT) SCRIBED Hemoglobin A1c 4.9 <5.7 % EXTERNAL LAB Blood 12/07/2024 3:40 PM CDT Result [facility] Provider MD LAB BLOOD ORDERABLES Rosemary l Result EXTERNAL LAB * (ABNORMAL) Vitamin B12 (12/07/2024 3:40 PM CDT) SCRIBED Vitamin B12 605 200 - 1,100 EXTERNAL LAB Blood 12/07/2024 3:40 PM CDT Result [facility] Historical Provider MD LAB BLOOD ORDERABLES Rosemary l Result EXTERNAL LAB * Lipid panel (12/07/2024 3:40 PM CDT) SCRIBED Cholesterol, Total 205 <200 EXTERNAL LAB SCRIBED HDL 125 <130 EXTERNAL LAB SCRIBED LDL 102 <100 EXTERNAL LAB SCRIBED Triglycerides 129 <150 EXTERNAL LAB Blood 12/07/2024 3:40 PM CDT Historical Provider LAB BLOOD ORDERABLES Rosemary bradshaw Result EXTERNAL LAB * Comprehensive metabolic panel (12/07/2024 [...] >=60 EXTERNAL LAB SCRIBED eGFR in NonAfrican Tristanian 113 >=60 EXTERNAL LAB Blood 12/07/2024 3:40 PM CDT us Historical Provider LAB BLOOD ORDERABLES Rosemary l Result EXTERNAL LAB * Screening Mammogram Bilateral [...] to a prior imaging study performed at [facility] on 05/01/2013. There are scattered areas of [...] to a prior imaging study performed at [facility] on 05/01/2013. There are scattered areas of fibroglandular density. There is no suspicious abnormality in either breast. Impression: There is no mammographic evidence of malignancy. Annual screening mammography is recommended. OVERALL FINAL ASSESSMENT: BI-RADS CATEGORY 1: Negative. us Self Screening Mammogram IMG MAMMO PROCEDURES Fi nal Result from Last 3 Months or Most Recently Relevant to Health Maintenance [place] [id number] [facility] CHOICE PLUS [employer] PPO WORKERS COMPENSATION GENERIC Care Teams Truant Officer Relationship Specialty Start Date End Date Stefanie Pace NP PCP - General Nurse Practitioner 06/28/21 Maame Shah MD [address] [address] Referring Physician Cardiology 12/10/24 Shante Lazo, silk blocker Failure Coordinator Cardiology 12/10/24 Roma Arizmendi, silk blocker Failure Coordinator Cardiology 12/10/24
[2025-03-01 18:29] VITALS: BP 121/70; PULSE 76; RESP 18; TEMP 36.6; O2SAT 100
[2025-03-01 18:54] LABS: EDSTREPNEGPOS1 Negative (Negative)
== END 2025-03-01 18:48 | disposition home or self-care (01) ==
PROVIDERS: Emergency Provider Nurse Practitioner; PCP Nurse Practitioner Family
DX: H66.92 Otitis media, unspecified, left ear (principal); J01.90 Acute sinusitis, unspecified; E28.2 Polycystic ovarian syndrome; Z87.891 Personal history of nicotine dependence
CPT/HCPCS: 87880; 99213; G0463

== ENCOUNTER 2025-04-12 14:51 | Outpatient (CLI) | payer OTHER, SELFPAY ==
--- NOTE | ~2025-04-12 | MM_ITS ---
EXAMINATION: screening [facility] BI w rony INDICATION: Asymptomatic, referred for screening mammogram COMPARISON: Baseline area TECHNIQUE: Digital Breast Tomosynthesis CC, MLO views of Both breasts were obtained with computer-aided detection to assist in interpretation of the study. FINDINGS: There are scattered areas of fibroglandular density. There is a circumscribed mass in the inner central right breast at anterior third. There is an asymmetry seen on the CC view in the inner right breast at posterior third. There is a focal asymmetry in the outer central left breast at anterior third. There is additional asymmetry seen on the cc view in the inner left breast at posterior third. Elsewhere, there are no mammographic features of malignancy. IMPRESSION: 1. Right breast mass and asymmetry. 2. Left breast asymmetries. RECOMMENDATION: Bilateral breast Diagnostic mammogram with true lateral, appropriate spot compression views and an ultrasound if needed. BI-RADS Category 0: Incomplete: Needs additional imaging evaluation. Reviewed, dictated and finalized at location B. IMPRESSION: 1. Right breast mass and asymmetry. 2. Left breast asymmetries. RECOMMENDATION: Bilateral breast Diagnostic mammogram with true lateral, appropriate spot compr ession views and an ultrasound if needed. BI-RADS Category 0: Incomplete: Needs additional imaging evaluation.
--- OUTSIDE RECORDS SUMMARY | 2025-04-12 15:06 | XMS_ITS | Clinical Summary ---
Author Organization [facility] al Address [address] [place] [address] Care Team Providers Care Sanding Machine Operator Or Tender Name Role Phone Stefanie Pace Vivi CUNNINGHAM Primary Care Provider + Shade Calix MD Unavailable [phone] Shante Lazo RN Unavailable Unavailable Roma Arizmendi RN Unavailable Unavailab le Allergies No known active allergies Medications carvediloL (COREG) 12.5 mg tablet Take 1 tablet (12.5 mg total) by mouth 2 (two) times a day with meals 60 tablet 11 5 12/11/19 26 Active losartan (COZAAR) 100 mg tablet Take 1 tablet (100 mg total) by mouth daily 90 tablet 3 5 Active chlorthalidone (HYGROTON) 25 mg tablet Take 1 tablet (25 mg total) by mouth daily 90 tablet 3 5 03/22/20 26 Active chlorthalidone (HYGROTON) 25 mg tablet Take 1 tablet (25 mg total) by mouth daily 5 03/22/20 25 Discontinu ed(Reorder ) Active Problems Problem Noted Date Diagnosed Date Primary hypertension 12/10/2024 Upper respiratory infection 06/28/2021 Posterior rhinorrhea 06/28/2021 Pain in throat 06/28/2021 Fatigue 06/28/2021 Changing skin lesion 06/28/2021 Menorrhagia 06/09/2021 Elevated white blood cell count, unspecified 12/ Encntr for general adult medical exam w/o [...] ovarian cyst, left side 09/02/2017 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 [address] [place] [address] 02/15/2025 3:00 PM CDT Office Visit [facility] [address] [facility] 8th [place] [address] [place] [address] Shade Calix MD Primary hypertension (Primary Dx) 02/15/2025 8:00 AM CDT - 02/15/2025 11:59 PM CDT Hospital Encounter [facility] [address] [place] [address] Primary hypertension Discharge Disposition: Discharge to home or self care 02/02/2025 Telephone [facility] Transplant Heart [address] [place] [address] [address] Mailstop [phone] [place] [address] Shante Lazo RN 02/02/2025 Orders Only [facility] Transplant Heart [address] [place] [address] [address] Mail[address] [phone] [place] [address] Shante Lazo RN Primary hypertension (Primary Dx) from Last 3 Months Immunizations Immunization Administration Dates Next Due Influenza, Trivalent, Preservative Free, Intramu scular 04/19/2015 Influenza, Unspecified 06/11/2018 Pfizer SARS-CoV-2 Monovalent Vaccination (12+ Yrs) TOBAR-READY TO USE 10/16/2021 Surgical History Surgery Date Site/Laterality Comments [place] LAPS ABD PRTM&OMENTUM DX W/WO SPEC BR/WA SPX Laparoscopy (Diagnostic) - (Added by Conv) [place] SLING OPERATION STRESS INCONTINENCE Mid-Urethral Sling Operation [...] history of cardiac disorder - (Added by Conv) Heart disease Maternal Grandmother Family history of cardiac disorder - (Added by Conv) Cancer Mother Mother Hypertension Mother Mother Family history of hypertension - (Added by TW Conv) Ovarian cancer Mother's Sister Ovarian ca ncer - (Added by Conv) Skin cancer Other 1 Family history of skin cancer - Relation: Aunt (Added by Conv) Diabetes Other 2 Family history of diabetes mellitus - Relation: Aunt (Added by TW Conv) Heart disease Paternal Grandfather Family history of cardiac disorder - (Added by Conv) Heart disease Paternal Grandmother Family history of cardiac disorder - (Added by Conv) Relation Name Status Comments Maternal Grandfather Stas Maternal Grandmother Mother Mother Mother's Sister Other 1 Other 2 Paternal Grandfather Paternal Grandmother Social History Tobacco Use Types Packs/Day Years Used Date Smoking Tobacco: Former Cigarettes 0.5 5 Smokeless Tobacco: Never Comments No Sex and Gender Information Value Date Recorded Sex Assigned at Not on file 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 Gender Identity Female 03/18/2019 7:48 AM CDT [...] Screening 01/17/2000 Regular Well Visit/Exam 18-64 01/17/2000 HPV Vaccines (1 - 3-dose SCDM series) 2009 Breast Cancer Screening-Mammogram 05/24/2023 05/24/2022, 05/01/2013 Covid-19 Vaccine ( season) 2024 10/16/2021, 10/14/2020, 09/16/2020 Influenza Vaccine (#1) 2025 8, 05/19/2016, 05/20/2015, Additional history exists DTaP/Tdap/Td Vaccine (3 - Td or Tdap) 11/13/2026 11/13/2016, 08/19/2004 Pneumococcal vaccine <65 Aged Out No longer eligible based on patient's age to complete this topic Medical Devices Implanted Type Area Plug Paster Device Identifier Shelf Expiration Date Model / Serial / Lot Bladder Sling Pelvis Procedures Procedure Name Priority Date/Time Associated Diagnosis Comments BASIC METABOLIC PANEL Routine 03/09/2025 9:22 AM CDT Primary hypertension EGFR Routine 02/15/2025 8:00 AM CDT Primary [...] Routine 02/15/2025 8:00 AM CDT Primary hypertension SCREENING MAMMOGRAM BILATERAL W SUNNY Schedule Routine, Read Routine (OP Routine) 05/24/2022 1:50 PM CDT Screening mammogram, encounter for from Last 3 Months or Most Recently Relevant to Health Maintenance Results * Basic metabolic panel (03/09/2025 9:22 AM CDT) Glucose 96 70 - 99 mg/dL [facility] - 01 BUN 14 6 - 24 mg/dL [facility] - 01 Creatinine, Serum 0.73 0.57 - 1.00 mg/dL [facility] - 01 eGFR 105 >59 mL/min/1.73 [facility] - 01 BUN/creat ratio 19 9 - 23 [facility] - 01 Sodium 139 134 - 144 mmol/L [facility] - 01 Potassium, sr 3.8 3.5 - 5.2 mmol/L [facility] - 01 Chloride 97 96 - 106 mmol/L [facility] - 01 CO2 25 20 - 29 mmol/L [facility] - 01 Calcium 10.1 8.7 - 10.2 mg/dL [facility] - 01 Blood 03/09/2025 9:22 AM CDT 03/09/2025 Narrative [facility] - 03/10/2025 1:07 AM CDT Performed at: 01 - [facility] [id number] Manager Building: Kevin Dao PhD, Phone: [phone] us Shade Calix MD LAB BLOOD ORDERABLES Final Result [facility] - 01 * (ABNORMAL) Catecholamines, fractionated, urine, 24 hour (02/15/2025 8:00 AM CDT) Epinephrine, free 24 hour ur <0.8 <21 mcg/24H [facility] Norepinephrine, free 24 hour ur 0.9(L) 15 - 80 mcg/24H [facility] Dopamine, free 24 hour ur <7.9 65 - 400 mcg/24H [facility] Comment: ADDITIONAL INFORMATION This test was developed and its performance characteristics determined by [facility] in a manner consistent with CLIA requirements. This test has not been cleared or approved by the U.S. Food and Drug Administration. Test Performed by: [facility] Laboratories - [facility] [address] [place] [address] Manager Building: Sunni Jay Ph.D.; CLIA# [id number] Urine 02/15/2025 8:00 AM CDT 02/15/2025 9:48 PM CDT Shade Calix MD LAB URINE ORDERABLES Final Result [facility] [place] [address] [facility] Lab * Metanephrines, urine, 24 hour (02/15/2025 8:00 AM CDT) [facility] Metanephrines Comment Not Reported [facility] Lab Metanephrines, 24 hr ur 90 mcg/24H [facility] Comment: REFERENCE VALUE 30-180 (Normotensive) <400 (Hypertensive) Normetanephrine, 24 hour ur 312 mcg/24H [facility] Comment: REFERENCE VALUE [phone] (Normotensive) <900 (Hypertensive) Metanephrine, Total, 24 Hour Urine 402 mcg/24H [facility] Comment: REFERENCE VALUE [phone] (Normotensive) <1300 (Hypertensive) Interpretive Data Testing performed by: [facility] [employer] [employer], [place] [address]. Urine 02/15/2025 8:00 AM CDT 02/15/2025 9:48 PM CDT Shade Calix MD LAB URINE ORDERABLES Final Result Performing Organization Address [facility] Co de Phone Number [facility] [place] [address] [facility] * eGFR (02/15/2025 8:00 AM [...] 8:00 AM CDT 02/15/2025 4:50 PM CDT Shade Calix MD LAB BLOOD ORDERABLES Final Result Performing Organization Address City/[facility]/ZIP Co de [place] [address] * Volume and period, urine, 24 hour (02/15/2025 8:00 AM CDT) Volume, ur 1,550 mL Period, Urine Collection 1,440 min [facility] Urine 02/15/2025 8:00 AM CDT 02/15/2025 4:50 PM CDT Shade Calix MD LAB [place] [address] * Creatinine clearance, urine, 24 hour (02/15/2025 8:00 AM CDT) Creatinine Clearance See Comment 60 - 130 mL/min Comment:Credited, specimen n ot received Creatinine, 24 hr, ur 1.1 0.6 - 1.5 g/24H [facility] Urine/Blood 02/15/2025 8:00 AM CDT 02/15/2025 4:50 PM CDT Shade Calix MD LAB URINE ORDERABLES Final Result Performing Organization Address City/[facility] [place] [address] * Aldosterone, urine, 24 hour (02/15/2025 8:00 AM CDT) Aldosterone, 24 hr, ur 4.4 2.0 - 20 mcg/24H [facility] Comment: Interpretive Data Testing performed by: [facility], [place] [address]. Urine 02/15/2025 8:00 AM CDT 02/15/2025 9:48 PM CDT Shade Calix MD LAB URINE ORDERABLES Final Result Performing Organization Address City/[facility] Co de Phone Number [facility] Leigha [facility] Department [place] [address] [facility] * Creatinine (02/15/2025 8:00 AM CDT) Creatinine See Comment 0.60 - 1.10 mg/dL Comment:Credited, specimen n ot received Urine/Blood 02/15/2025 8:00 AM CDT 02/15/2025 4:50 PM CDT Shade Calix MD LAB BLOOD ORDERABLES Final Result Performing Organization Address [facility] Co de Phone Number [facility] Leigha [facility] [place] [address] * Screening Mammogram Bilateral W Sunny (05/24/2022 1:50 PM CDT) Anatomical Region Laterality Modality Breast Bilateral Mammography Narrative 05/25/2022 12:43 PM CDT Mammogram Technique: Bilateral Digital Breast Tomosynthesis, Bilateral C-view 2D Screening mammogram. Views obtained: bilateral craniocaudal and bilateral mediolateral oblique. Computer Aided Detection was performed. Mammogram Findings: The present examination has been compared to a prior imaging study performed at [facility] on 05/01/2013. There are scattered areas [...] to a prior imaging study performed at [facility] on 05/01/2013. There are scattered areas of fibroglandular density. There is no suspicious abnormality in either breast. Impression: There is no mammographic evidence of malignancy. Annual screening mammography is recommended. OVERALL FINAL ASSESSMENT: BI-RADS CATEGORY 1: Negative. us Self Screening Mammogram IMG MAMMO PROCEDURES Fi nal Result from Last 3 Months or Most Recently Relevant to Health Maintenance Insurance R OPTIONS PPO [facility] CHOICE PLUS R OPTIONS PPO WORKERS COMPENSATION GENERIC Care Teams Sanding Machine Operator Or Tender Relationship Specialty Start Date End Date Stefanie Pace NP PCP - General Nurse Practitioner 06/28/21 Shade Calix MD [address] [address] Referring Physician Cardiology 12/10/24 Shante Lazo, wafer fabrication technician Failure Coordinator Cardiology 12/10/24 Roma Arizmendi, wafer fabrication technician Failure Coordinator Cardiology 12/10/24
--- OUTSIDE RECORDS SUMMARY | 2025-04-12 15:06 | XMS_ITS | Clinical Summary ---
Author Organization [facility] [employer] Address [address] [place] [address] Care Team Providers Care Chemist Food Name Role Phone [place], Stefanie Moya APRN-FOUNTAIN HELPER Primary Care Provider Source Comments [facility] [employer],non-owned Affiliates and Associated Physician Practices is amultiple site organization consisting of ambulatory clinics and hospital sitesin [place], [place], [place] and [place]. This disclosure is being madepursuant to the Care Everywhere program and may not contain all information available regarding this patient. 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
--- OUTSIDE RECORDS SUMMARY | 2025-04-12 15:06 | XMS_ITS | Clinical Summary ---
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
--- OUTSIDE RECORDS SUMMARY | 2025-04-12 15:06 | XMS_ITS | Clinical Summary ---
Author Organization [facility] Address [address] [place] [address] Care Team Providers Care Transit Survey Worker Name Role Phone Unavailable Primary Care [...] 3 - 19+ 3-dose series) 2001 HPV Vaccines (1 - 3-dose SCD M series) 2009 Cervical Cancer Screening Pa p with HPV Testing (Age 30 to 64) Every 5 Years 01/17/2012 Cervical Cancer Screening with HPV 01/17/2012 Mammogram Screening 2022 COVID-19 Vaccine ( - 2023-2 5 season) 2024 Meningococcal B Vaccine Aged Out No l [...]
== END 2025-04-12 14:52 | disposition home or self-care (01) ==
LOC: ANHFOHIMG 14:53
PROVIDERS: PCP Nurse Practitioner Family; Visit Provider Nurse Practitioner Family
DX: Z12.31 Encounter for screening mammogram for malignant neoplasm of breast (principal); R92.8 Other abnormal and inconclusive findings on diagnostic imaging of breast
CPT/HCPCS: 77063; 77067

== ENCOUNTER 2025-05-10 13:35 | Outpatient (CLI) | payer OTHER, SELFPAY ==
--- NOTE | ~2025-05-10 | MMUS_ITS ---
EXAMINATION: MM diagnostic emilio BI w rony, US breast BI limited INDICATION: 45-year old female; BI-RADS 0, callback to evaluate Both breast findings. COMPARISON: 04/12/2025 TECHNIQUE: Digital breast tomosynthesis True lateral and spot compression CC and MLO views of the BILATERAL breast were obtained with computer-aided detection to assist in interpretation of the study. FINDINGS: There are scattered areas of fibroglandular density. The mass of concern in the inner central left breast persists with circumscribed lobulated margins. The asymmetry of concern at posterior third in the inner right breast partially persists. Superficial mass in the outer central left breast persists. The asymmetry seen in the inner left breast at posterior third effaces on spot compression views compatible with superimposition of fibroglandular tissue. Ultrasound was performed for further evaluation. BILATERAL BREAST ULTRASOUND FINDINGS: Targeted evaluation of the area of concern was completed. Right breast: There is a 0.8 x 1.1 x 0.4 cm cluster of cysts at 12:00 location near the nipple which correlate to the area of Mammographic finding. There is no sonographic correlate to the asymmetry seen at posterior third in the inner right breast on mammography. This finding is considered probably benign and short-term follow-up recommended. Left breast: A 0.6 x 0.6 x 0.4 cm circumscribed hypoechoic mass seen at 3:00, 2 cm from the nipple correlates to the mammographic abnormality. This finding is considered probably benign and short-term follow-up recommended. There is no sonographic correlate to the asymmetry seen in the inner left breast at posterior third on mammography examination.. IMPRESSION: Probable Benign BILATERAL breast findings. Short-term follow-up recommended. RECOMMENDATION: 6 month follow-up diagnostic BILATERAL mammogram and BILATERAL breast ultrasound. BI-RADS 3, PROBABLY BENIGN Reviewed, dictated and finalized at location B. IMPRESSION: Probable Benign BILATERAL breast findings. Short-term follow-up recommended. RECOMMENDATION: 6 month follow-up diagnostic BILATERAL mammogram and BILATERAL breast ultrasoun d. BI-RADS 3, PROBABLY BENIGN
--- OUTSIDE RECORDS SUMMARY | 2025-05-10 13:58 | XMS_ITS | Clinical Summary ---
Author Organization [facility] Address [address] [place] [address] Care Team Providers Care Client Services Coordinator Name Role Phone Stefanie Pace NP Primary Care Provider + Shade Calix MD Unavailable [phone] Shante Lazo RN Unavailable Unavailable Roma Arizmendi RN Unavailable Unavailab Bryanna Sawyer Unavailable Unavailable Allergies No known active allergies Medications carvediloL [...] total) by mouth daily 90 tablet 3 03/22/2025 6 Active Active Problems Problem Noted Date [...] ovarian cyst, left side 09/02/2017 Encntr for hosiery pairer exam (general) (routine) w/o abn findings 04/16/2016 [...] Description 02/16/2025 Telephone [facility] Transplant Heart [address] [facility] [address] Mailstop [phone] [place] [address] Vi Parra 02/15/2025 3:20 PM CDT Lab [facility] [address] [place] [address] 02/15/2025 3:00 PM CDT Office Visit [facility] Medicine Cardiology [address] [facility] Advanced Medicine 8th [place] [address] [place] [address] Shade Calix MD Primary hypertension (Primary Dx) 02/15/2025 8:00 AM CDT - 02/15/2025 11:59 PM [place] [address] Primary hypertension Discharge Disposition: Discharge to home or self care from Last 3 Months Immunizations Immunization Administration Dates Next Due Influenza, Trivalent, Preservative Free, Intramu scular 04/19/2015 Influenza, Unspecified 06/11/2018 Pfizer SARS-CoV-2 Monovalent Vaccination (12+ Yrs) TOBAR-READY TO USE 10/16/2021 Surgical History Surgery Date Site/Laterality Comments LA LAPS ABD PRTM&OMENTUM DX W/WO SPEC BR/WA SPX Laparoscopy (Diagnostic) - (Added by TW Conv) LA SLING OPERATION STRESS INCONTINENCE Mid-Urethral Sling Operation - (Added by TW Conv) LUMBAR DISC SURGERY Lower Back Surgery Lumbar Disc - (Added by TW Conv) MICRODISCECTOMY TUBAL LIGATION 2020 SPINE SURGERY 2016 BLADDER SURGERY 2019 Medical History Medical History Date Comments Personal [...] on file 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 Gender Identity Female 03/18/2019 7:48 AM CDT [...] 05/24/2023 05/24/2022, 05/01/2013 Covid-19 Vaccine ( season) 2025 10/16/2021, 10/14/2020, 09/16/2020 Influenza Vaccine (#1) 2025 8, 05/19/2016, 05/20/2015, Additional history exists DTaP/Tdap/Td Vaccine (3 - Td or Tdap) 11/13/2026 11/13/2016, 08/19/2004 Pneumococcal vaccine <65 Aged Out No longer eligible based on patient's age to complete this topic Medical Devices Implanted Type Area Mobile Plant Operators Device Identifier Shelf Expiration Date Model / [...] - 03/10/2025 1:07 AM CDT Performed at: - [address] [id number] Regulatory Coordinator: Kevin Dao PhD, Phone: [phone] us Shade Calix MD LAB BLOOD ORDERABLES Final Result [facility] * (ABNORMAL) Catecholamines, fractionated, urine, 24 hour (02/15/2025 8:00 AM CDT) Pathologist [facility] Epinephrine, free 24 hour ur <0.8 <21 mcg/24H Interior ref Lab Norepinephrine, free 24 hour ur 0.9(L) 15 - 80 mcg/24H [facility] Dopamine, free 24 hour ur <7.9 65 - 400 mcg/24H [facility] Comment: ADDITIONAL INFORMATION This test was developed and its performance characteristics determined by [facility] in a manner consistent with CLIA requirements. This test has not been cleared or approved by the U.S. Food and Drug Administration. Test Performed by: [facility] Laboratories - [address] [address] Regulatory Coordinator: Sunni Jay Ph.D.; CLIA# [id number] Urine 02/15/2025 8:00 AM CDT 02/15/2025 9:48 PM CDT Shade Calix MD LAB URINE ORDERABLES Final Result [facility] Department [place] [address] [facility] * Metanephrines, urine, 24 hour (02/15/2025 8:00 AM CDT) Pathologist [facility] Metanephrines Comment Not Reported [facility] Lab Metanephrines, 24 hr ur 90 mcg/24H [facility] Comment: REFERENCE VALUE 30-180 (Normotensive) <400 (Hypertensive) Normetanephrine, 24 hour ur 312 mcg/24H [facility] Comment: REFERENCE VALUE [phone] (Normotensive) <900 (Hypertensive) Metanephrine, Total, 24 Hour Urine 402 mcg/24H [facility] Comment: REFERENCE VALUE [phone] (Normotensive) <1300 (Hypertensive) Interpretive Data Testing performed by: [facility], [place] [address]. Urine 02/15/2025 8:0 0 AM CDT 02/15/2025 9:48 PM CDT Shade Calix MD LAB URINE ORDERABLES Final Result Performing Organization Address City/[facility]/ZIP Co de Phone Number [facility] Department [place] [address] [facility] Lab * eGFR (02/15/2025 8:00 [...] 8:00 AM CDT 02/15/2025 4:50 PM CDT us Shade Calix MD LAB BLOOD ORDERABLES Final Result [facility] Department [place] [address] * Volume and period, urine, 24 hour (02/15/2025 8:00 AM CDT) Volume, ur 1,550 mL Period, Urine Collection 1,440 min [facility] Urine 02/15/2025 8:00 AM CDT 02/15/2025 4:50 PM CDT Shade Calix MD LAB URINE ORDERABLES Final Result [facility] [place] [address] * Creatinine clearance, urine, 24 hour (02/15/2025 8:00 AM CDT) Creatinine Clearance See Comment 60 - 130 mL/min Comment:Credited, specimen n ot received Creatinine, 24 hr, ur 1.1 0.6 - 1.5 g/24H [facility] Urine/Blood 02/15/2025 8:00 AM CDT 02/15/2025 4:50 PM CDT Shade Calix MD LAB URINE ORDERABLES Final Result Performing Organization Address [facility] [place] [address] * Aldosterone, urine, 24 hour (02/15/2025 8:00 AM CDT) Aldosterone, 24 hr, ur 4.4 2.0 - 20 mcg/24H [facility] ref Lab Comment: Interpretive Data Testing performed by: [facility], [place] [address]. Urine 02/15/2025 8:00 AM CDT 02/15/2025 9:48 PM CDT Shade Calix MD LAB URINE ORDERABLES Final Result Performing Organization Address [facility] [place] [address] Interior ref Lab * Creatinine (02/15/2025 8:00 AM CDT) Creatinine See Comment 0.60 - 1.10 mg/dL Comment:Credited, specimen n ot received Urine/Blood 02/15/2025 8:00 AM CDT 02/15/2025 4:50 PM CDT Shade Calix MD LAB BLOOD ORDERABLES Final Result [facility] Department [place] [address] * Screening Mammogram Bilateral W Sunny (05/24/2022 1:50 PM CDT) Anatomical Region Laterality Modality Breast Bilateral Mammography Narrative 05/25/2022 12:43 PM CDT Mammogram Technique: Bilateral Digital Breast Tomosynthesis, Bilateral C-view 2D Screening mammogram. Views obtained: bilateral craniocaudal and bilateral mediolateral oblique. Computer Aided Detection was performed. Mammogram Findings: The present examination has been compared to a prior imaging study performed at [facility] on 05/01/2013. There are scattered areas of [...] to a prior imaging study performed at [facility] on 05/01/2013. There are scattered areas of fibroglandular density. There is no suspicious abnormality in either breast. Impression: There is no mammographic evidence of malignancy. Annual screening mammography is recommended. OVERALL FINAL ASSESSMENT: BI-RADS CATEGORY 1: Negative. us Self Screening Mammogram IMG MAMMO PROCEDURES Fi nal Result from Last 3 Months or Most Recently Relevant to Health Maintenance Insurance [employer] P[employer] [facility] HMO/PPO Address: [address] [place], [place] [id number] [facility] CHOICE PLUS [facility] HMO/PPO Address: [address] [address] [place] [address] [facility] OPTIONS PPO [facility] HMO/PPO Address: [address] [place], [place] [phone] [employer] Care Teams Client Services Coordinator Relationship Specialty Start Date End Date Stefanie Pace NP PCP - General Nurse Practitioner 06/28/21 Shade Calix MD [address] [address] Referring Physician Cardiology 12/10/24 Shante Lazo, corporate giving manager Failure Coordinator Cardiology 12/10/24 Roma Arizmendi RN Heart Failure Coordinator Cardiology 12/10/24 Bryanna Jane Primary Foreign Car Mechanic 05/06/25
--- OUTSIDE RECORDS SUMMARY | 2025-05-10 13:58 | XMS_ITS | Clinical Summary ---
Author Organization [facility] Address [address] [place] [address] Care Team Providers Care Vacuum Drier Operator Name Role Phone Sanjeev, Stefanie Moya APRN-VACUUM FORM OPERATOR Primary Care Provider Source Comments [facility],non-owned Affiliates and Associated Physician Practices is amultiple site organization consisting of ambulatory clinics and hospital sitesin [place], [place], [place] and [place]. This disclosure is being madepursuant to the Care Everywhere program and may not contain all information available regarding this patient. 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
--- OUTSIDE RECORDS SUMMARY | 2025-05-10 13:58 | XMS_ITS | Clinical Summary ---
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
--- OUTSIDE RECORDS SUMMARY | 2025-05-10 13:58 | XMS_ITS | Clinical Summary ---
Author Organization [facility] Address [address] [place] [address] Care Team Providers Care Engineer Fishing Vessel Name Role Phone Unavailable Primary Care Provider [...] COVID-19 Vaccine ( - 2023-2 5 season) 2025 Meningococcal B Vaccine Aged Out No l [...]
== END 2025-05-10 13:36 | disposition home or self-care (01) ==
LOC: ANHFOHIMG 13:36
PROVIDERS: PCP Nurse Practitioner Family; Visit Provider Nurse Practitioner Family
DX: R92.8 Other abnormal and inconclusive findings on diagnostic imaging of breast (principal)
CPT/HCPCS: 76642; 77062; 77066; G0279